=== PATIENT | male | born 1960 | race Two or more races ===

== ENCOUNTER 2022-10-12 17:52 | Inpatient (IN) | payer MEDICAID ==
[~2022-10-12] VITALS: Ht 165.1 cm; Wt 65.5 kg
[~2022-10-12 17:52] MED LIST: ACET-2247 PO; ALBU2.5V39 NEB; AMLO-258 PO; ASPI-1450 PO; BISA10SU11 PR; BUDE0.5A NEB; CLON0.1T2 PO; DOCU-385 PO; EPOE10003 SQ; FAMO20 PO; FURO40 PO; HEPA500018 SQ; PERCT PO
[2022-10-12] MEDS ORDERED: LORazepam 1 MG TABLET PO ONE (19:00)
[2022-10-12 19:07] LABS: PH,URINE DRUG SCREEN 5.5 (5.0-8.0)
[2022-10-12 19:07] LABS: COVID AG,FIA SOURCE NASOPHARYNGEAL
[2022-10-12 19:14] LABS: ALCOHOL, URINE DRUG SCREEN NEGATIVE (NEGATIVE); AMPHET/METH SCREEN,URINE NEGATIVE (NEGATIVE); BARBITURATE SCREEN, URINE NEGATIVE (NEGATIVE); BENZODIAZEPINES SCREEN,URINE NEGATIVE (NEGATIVE); CANNABINOID SCREEN,URINE NEGATIVE (NEGATIVE); COCAINE SCREEN,URINE NEGATIVE (NEGATIVE); METHADONE SCREEN, URINE NEGATIVE (NEGATIVE); OPIATE SCREEN,URINE NEGATIVE (NEGATIVE); PHENCYCLIDINE SCREEN,URINE NEGATIVE (NEGATIVE)
[2022-10-12 19:24] LABS: SARS-COV2 (COVID) ANTIGEN,FIA Negative (Negative)
[2022-10-12] MEDS ORDERED: ACETAMINOPHEN 325 MG TABLET PO PRN (19:45)
[2022-10-12 20:48] LABS: EOSINOPHILS % (AUTO) 2.6 % (1.0-6.0); HEMATOCRIT 29.2 % (41-53); HEMOGLOBIN 9.9 g/dL (13.5-17.5); LYMPHOCYTES # (AUTO) 0.8 K/uL (1.0-4.8); LYMPHOCYTES % (AUTO) 10.1 % (22.0-44.0); MEAN CORPUSCULAR HGB CONC 33.8 G/dL (31.0-37.0); MEAN CORPUSCULAR VOLUME 74 fL (80-100); MONOCYTES # (AUTO) 0.5 K/uL (0.1-1.0); MONOCYTES % (AUTO) 6.4 % (2.0-9.0); NEUTROPHILS # (AUTO) 6.4 K/uL (1.8-7.7); NEUTROPHILS % (AUTO) 79.9 % (40.0-70.0); PLATELET COUNT (AUTO) 202 K/uL (150-450); RED BLOOD CELL COUNT(AUTO) 3.96 MIL/uL (4.50-5.90); RED CELL DISTRIBUTION WIDTH 18.1 % (11.5-14.5)
[2022-10-12 20:56] LABS: ANION GAP 12 mmol/L (8-16); CALCIUM, TOTAL 8.2 mg/dL (8.8-10.5); CARBON DIOXIDE 26 mmol/L (22-29); CHLORIDE 101 mmol/L (98-107); CREATININE 3.98 mg/dL (0.60-1.30); GLOMERULAR FILTR. RATE CALC 15 mL/min (>60); GLUCOSE,RANDOM 107 mg/dL (70-110); POTASSIUM 3.4 mmol/L (3.5-5.1); SODIUM SERUM 139 mmol/L (136-145); UREA NITROGEN, BLOOD 71 mg/dL (7-18)
[2022-10-12 20:59] LABS: ALCOHOL, BLOOD (SERUM) < 3 mg/dL (0-10)
[2022-10-12 21:01] LABS: ALANINE AMINOTRANSFERASE 21 U/L (12-78); ALKALINE PHOSPHATASE 115 U/L (46-116); ASPARTATE AMINOTRANSFERASE 12 U/L (15-37); BILIRUBIN,TOTAL 0.4 mg/dL (0.1-1.0); TOTAL PROTEIN, SERUM 6.3 g/dL (6.4-8.2)
[2022-10-13] MEDS ORDERED: SODIUM CHLORIDE 0.9% 250 ML IV ONE ×2 (06:23→06:30)
[2022-10-13] MEDS ORDERED: AmLODIPine BESYLATE 10 MG TABLET PO ONE (06:30)
[2022-10-13] MEDS ORDERED: ZOLPIDEM TARTRATE 10 MG TABLET PO PRN (08:15)
[2022-10-13 08:27] LABS: APPEARANCE,URINE CLEAR (CLEAR); BILIRUBIN,URINE NEGATIVE (NEGATIVE); COLOR,URINE LIGHT YELLOW (YELLOW); GLUCOSE, URINE (UA) NEGATIVE (NEGATIVE); KETONES,URINE NEGATIVE (NEGATIVE); LEUKOCYTE ESTERASE ,URINE NEGATIVE (NEGATIVE); NITRATE,URINE NEGATIVE (NEGATIVE); OCCULT BLOOD,URINE TRACE (NEGATIVE); PH,URINE 5.5 (5.0-8.0); PROTEIN,URINE 300-600,SEE CONFIRM mg/dL (NEGATIVE); SPECIFIC GRAVITIY, URINE 1.011 (1.003-1.030); UROBILINOGEN,URINE <=1.0 mg/dL (<=1.0)
[2022-10-13 08:44] LABS: BACTERIA,URINE None Seen /HPF (None Seen); RBC,URINE 0-2 /HPF (0-2); SULFOSALICYLIC ACID,URINE 3+ (Negative); WBC,URINE None Seen /HPF (0-5)
[2022-10-13] MEDS: HydrALAZINE HCL 25 MG TABLET PO SCH ×3 (11:06→20:30)
[2022-10-13] MEDS: CloNIDine HCL 0.1 MG TABLET PO PRN (12:05)
[2022-10-13] MEDS: LORazepam 2 MG TABLET PO PRN (21:56)
[2022-10-13] MEDS: HALOPERIDOL 5 MG TABLET PO PRN (21:56)
[2022-10-14] MEDS: CloNIDine HCL 0.1 MG TABLET PO PRN ×2 (04:17→13:34)
[2022-10-14] MEDS: HALOPERIDOL 5 MG TABLET PO PRN (04:17)
[2022-10-14] MEDS: LORazepam 2 MG TABLET PO PRN (04:17)
[2022-10-14 08:11] LABS: GLUCOMETER DEV NAME(LOC) ER.6; GLUCOSE,POINT OF CARE 128 MG/DL (70-110)
[2022-10-14] MEDS: HydrALAZINE HCL 25 MG TABLET PO SCH ×2 (08:35→15:29)
[2022-10-14 12:06] LABS: GLUCOMETER DEV NAME(LOC) ER.6; GLUCOSE,POINT OF CARE 152 MG/DL (70-110)
[2022-10-14] MEDS ORDERED: HydrALAZINE HCL 25 MG TABLET PO ONE (15:45)
[2022-10-14] MEDS ORDERED: LABETALOL HCL 100 MG TABLET PO SCH (17:00)
[2022-10-14] MEDS ORDERED: HydrALAZINE HCL 50 MG TABLET PO SCH (17:00)
[2022-10-14] MEDS: HydrALAZINE HCL 50 MG TABLET PO SCH (21:00)
[2022-10-14 22:09] LABS: BASOPHILS % (AUTO) 0.9 % (0.0-2.0); EOSINOPHILS % (AUTO) 3.3 % (1.0-6.0); HEMATOCRIT 31.3 % (41-53); HEMOGLOBIN 10.2 g/dL (13.5-17.5); LYMPHOCYTES % (AUTO) 13.4 % (22.0-44.0); MEAN CORPUSCULAR HEMOGLOBIN 24.1 pg (26.0-34.0); MEAN CORPUSCULAR HGB CONC 32.4 G/dL (31.0-37.0); MEAN CORPUSCULAR VOLUME 74 fL (80-100); MONOCYTES # (AUTO) 0.7 K/uL (0.1-1.0); MONOCYTES % (AUTO) 9.2 % (2.0-9.0); NEUTROPHILS # (AUTO) 5.4 K/uL (1.8-7.7); NEUTROPHILS % (AUTO) 73.2 % (40.0-70.0); PLATELET COUNT (AUTO) 216 K/uL (150-450); RED BLOOD CELL COUNT(AUTO) 4.22 MIL/uL (4.50-5.90); RED CELL DISTRIBUTION WIDTH 18.1 % (11.5-14.5); WHITE BLOOD COUNT (AUTO) 7.4 K/uL (4.5-11.0)
[2022-10-14] MEDS ORDERED: NITROGLYCERIN 2% (1 GM=INCH) OINTMENT PACKET TP PRN (22:15)
[2022-10-14] MEDS ORDERED: HydrALAZINE HCL 20 MG/ML VIAL IVP ONE (22:15)
[2022-10-14] MEDS ORDERED: ONDANSETRON HCL 4 MG/2 ML VIAL IVP PRN (22:15)
[2022-10-14 22:29] LABS: CALCIUM, TOTAL 8.5 mg/dL (8.8-10.5); CREATININE 3.59 mg/dL (0.60-1.30); POTASSIUM 3.4 mmol/L (3.5-5.1)
[2022-10-14 22:34] LABS: BILIRUBIN,TOTAL 0.4 mg/dL (0.1-1.0); TOTAL PROTEIN, SERUM 6.3 g/dL (6.4-8.2)
[2022-10-14 22:46] LABS: TROPONIN I-HIGH SENSITIVITY 94 ng/L (<76)
[2022-10-14] MEDS ORDERED: ASPIRIN 81 MG CHEWABLE TABLET PO ONE (23:00)
[2022-10-14] MEDS ORDERED: ATORVASTATIN CALCIUM 40 MG TABLET PO ONE (23:00)
[2022-10-14] MEDS ORDERED: LORazepam 2 MG/ML VIAL IVP ONE (23:15)
[2022-10-15] MEDS ORDERED: HEPARIN SODIUM,PORCINE 5,000 UNITS/ML VIAL SQ SCH
[2022-10-15] MEDS: NiCARDipine HCL 25 MG in SODIUM CHLORIDE 0.9% 240 ML IV PRN ×5 (03:43→21:44)
[2022-10-15] MEDS ORDERED: HALOPERIDOL LACTATE 5 MG/ML VIAL IM ONE (04:15)
[2022-10-15] MEDS ORDERED: LORazepam 2 MG/ML VIAL IVP ONE (04:45)
[2022-10-15 05:08] LABS: BASOPHILS % (AUTO) 0.8 % (0.0-2.0); EOSINOPHILS % (AUTO) 2.8 % (1.0-6.0); HEMATOCRIT 34.1 % (41-53); HEMOGLOBIN 11.3 g/dL (13.5-17.5); LYMPHOCYTES # (AUTO) 1.1 K/uL (1.0-4.8); LYMPHOCYTES % (AUTO) 11.8 % (22.0-44.0); MEAN CORPUSCULAR HEMOGLOBIN 24.7 pg (26.0-34.0); MEAN CORPUSCULAR HGB CONC 33.2 G/dL (31.0-37.0); MEAN CORPUSCULAR VOLUME 74 fL (80-100); MONOCYTES # (AUTO) 0.7 K/uL (0.1-1.0); MONOCYTES % (AUTO) 7.3 % (2.0-9.0); NEUTROPHILS # (AUTO) 7.3 K/uL (1.8-7.7); NEUTROPHILS % (AUTO) 77.3 % (40.0-70.0); PLATELET COUNT (AUTO) 209 K/uL (150-450); RED BLOOD CELL COUNT(AUTO) 4.59 MIL/uL (4.50-5.90); RED CELL DISTRIBUTION WIDTH 18.5 % (11.5-14.5); WHITE BLOOD COUNT (AUTO) 9.5 K/uL (4.5-11.0)
[2022-10-15 05:27] LABS: CALCIUM, TOTAL 8.7 mg/dL (8.8-10.5); CREATININE 3.45 mg/dL (0.60-1.30); MAGNESIUM 2.2 mg/dL (1.80-2.40); POTASSIUM 3.3 mmol/L (3.5-5.1)
[2022-10-15 05:30] LABS: TROPONIN I-HIGH SENSITIVITY 97 ng/L (<76)
[2022-10-15 09:31] LABS: TROPONIN I-HIGH SENSITIVITY 228 ng/L (<76)
[2022-10-15] MEDS: ASPIRIN 81 MG CHEWABLE TABLET PO SCH (09:40)
[2022-10-15] MEDS: DOCUSATE SODIUM 100 MG CAPSULE PO SCH ×2 (09:40→20:30)
[2022-10-15] MEDS: METOPROLOL TARTRATE 25 MG TABLET PO SCH ×2 (09:40→20:30)
[2022-10-15] MEDS: CloNIDine HCL 0.1 MG TABLET PO SCH ×3 (09:40→23:35)
[2022-10-15] MEDS: HydrALAZINE HCL 50 MG TABLET PO SCH ×3 (09:41→20:30)
[2022-10-15] MEDS: ATORVASTATIN CALCIUM 40 MG TABLET PO SCH (09:41)
[2022-10-15 12:00] VITALS: BP 123/87; PULSE 87; RESP 12; TEMP 98.2
[2022-10-15] MEDS: LORazepam 2 MG/ML VIAL IVP PRN ×4 (13:56→23:35)
[2022-10-15 16:00] VITALS: BP 165/114; PULSE 112; RESP 14; TEMP 98.5
[2022-10-15] MEDS: HALOPERIDOL LACTATE 5 MG/ML VIAL IM PRN (17:07)
[2022-10-15 20:00] VITALS: BP 168/87; PULSE 117; RESP 15; TEMP 99
[2022-10-15] MEDS: LABETALOL HCL 5 MG/ML 20 ML VIAL IVP PRN (22:03)
[2022-10-15] MEDS: ACETAMINOPHEN 325 MG TABLET PO PRN (22:04)
[2022-10-15] MEDS: HEPARIN SODIUM,PORCINE 5,000 UNITS/ML VIAL SQ SCH (23:34)
[2022-10-16] VITALS (7 sets, daily range): BP systolic 114–188; BP diastolic 68–118; PULSE 70–97; RESP 12–20; TEMP 98–99.7
[2022-10-16] MEDS: NiCARDipine HCL 25 MG in SODIUM CHLORIDE 0.9% 240 ML IV PRN ×3 (02:32→10:21)
[2022-10-16] MEDS: LORazepam 2 MG/ML VIAL IVP PRN (02:33)
[2022-10-16] MEDS: HALOPERIDOL LACTATE 5 MG/ML VIAL IM PRN (03:53)
[2022-10-16 05:29] LABS: BASOPHILS % (AUTO) 1.1 % (0.0-2.0); EOSINOPHILS % (AUTO) 1.9 % (1.0-6.0); HEMATOCRIT 30.2 % (41-53); HEMOGLOBIN 10.2 g/dL (13.5-17.5); LYMPHOCYTES # (AUTO) 0.6 K/uL (1.0-4.8); LYMPHOCYTES % (AUTO) 7.2 % (22.0-44.0); MEAN CORPUSCULAR HEMOGLOBIN 25.1 pg (26.0-34.0); MEAN CORPUSCULAR HGB CONC 33.8 G/dL (31.0-37.0); MEAN CORPUSCULAR VOLUME 74 fL (80-100); MONOCYTES # (AUTO) 0.6 K/uL (0.1-1.0); MONOCYTES % (AUTO) 7.1 % (2.0-9.0); NEUTROPHILS # (AUTO) 7.4 K/uL (1.8-7.7); NEUTROPHILS % (AUTO) 82.7 % (40.0-70.0); PLATELET COUNT (AUTO) 212 K/uL (150-450); RED BLOOD CELL COUNT(AUTO) 4.06 MIL/uL (4.50-5.90); RED CELL DISTRIBUTION WIDTH 18.6 % (11.5-14.5)
[2022-10-16 05:40] LABS: CALCIUM, TOTAL 8.6 mg/dL (8.8-10.5); CREATININE 3.39 mg/dL (0.60-1.30); POTASSIUM 3.1 mmol/L (3.5-5.1)
[2022-10-16 05:55] LABS: TROPONIN I-HIGH SENSITIVITY 145 ng/L (<76)
[2022-10-16] MEDS ORDERED: DEXTROSE 5% IV ONE (09:45)
[2022-10-16] MEDS ORDERED: AmLODIPine BESYLATE 5 MG TABLET PO SCH (09:45)
[2022-10-16] MEDS ORDERED: WATER IV ONE (09:45)
[2022-10-16] MEDS ORDERED: POTASSIUM CHLORIDE IV ONE (09:45)
[2022-10-16] MEDS: ATORVASTATIN CALCIUM 40 MG TABLET PO SCH (10:17)
[2022-10-16] MEDS: METOPROLOL TARTRATE 25 MG TABLET PO SCH ×2 (10:17→20:43)
[2022-10-16] MEDS: ASPIRIN 81 MG CHEWABLE TABLET PO SCH (10:18)
[2022-10-16] MEDS: CloNIDine HCL 0.1 MG TABLET PO SCH ×3 (10:18→23:34)
[2022-10-16] MEDS: DOCUSATE SODIUM 100 MG CAPSULE PO SCH ×2 (10:19→20:43)
[2022-10-16] MEDS: HEPARIN SODIUM,PORCINE 5,000 UNITS/ML VIAL SQ SCH ×3 (10:19→23:34)
[2022-10-16] MEDS: LABETALOL HCL 5 MG/ML 20 ML VIAL IVP PRN (11:50)
[2022-10-16] MEDS: HydrALAZINE HCL 50 MG TABLET PO SCH ×2 (15:18→20:43)
[2022-10-17 01:05] VITALS: BP 182/102; PULSE 64; RESP 18; TEMP 97.6
[2022-10-17 05:15] VITALS: BP 185/119; PULSE 73; RESP 18; TEMP 97.8
[2022-10-17] MEDS: LABETALOL HCL 5 MG/ML 20 ML VIAL IVP PRN (05:21)
[2022-10-17 07:14] LABS: CALCIUM, TOTAL 8.2 mg/dL (8.8-10.5); CREATININE 3.39 mg/dL (0.60-1.30); POTASSIUM 3.6 mmol/L (3.5-5.1)
[2022-10-17] MEDS: AmLODIPine BESYLATE 5 MG TABLET PO SCH ×2 (07:16→09:00)
[2022-10-17] MEDS: DOCUSATE SODIUM 100 MG CAPSULE PO SCH ×2 (09:00→20:57)
[2022-10-17] MEDS: ASPIRIN 81 MG CHEWABLE TABLET PO SCH (09:36)
[2022-10-17] MEDS: METOPROLOL TARTRATE 25 MG TABLET PO SCH ×2 (09:36→20:56)
[2022-10-17] MEDS: HEPARIN SODIUM,PORCINE 5,000 UNITS/ML VIAL SQ SCH ×2 (09:36→16:24)
[2022-10-17] MEDS: ATORVASTATIN CALCIUM 40 MG TABLET PO SCH (09:36)
[2022-10-17] MEDS: HydrALAZINE HCL 50 MG TABLET PO SCH ×3 (11:33→20:57)
[2022-10-17] MEDS ORDERED: DEXTROSE 5%-WATER 1,000 ML IV SCH (13:45)
[2022-10-17] MEDS: LORazepam 2 MG/ML VIAL IVP PRN (14:25)
[2022-10-17] MEDS: CloNIDine HCL 0.1 MG TABLET PO SCH (16:24)
[2022-10-17 19:39] VITALS: BP 156/102; PULSE 73; RESP 20; TEMP 98.6
[2022-10-17 23:55] VITALS: BP 186/108; PULSE 71; RESP 18; TEMP 98.1
[2022-10-18] MEDS: HEPARIN SODIUM,PORCINE 5,000 UNITS/ML VIAL SQ SCH ×4 (01:03→16:17)
[2022-10-18] MEDS: CloNIDine HCL 0.1 MG TABLET PO SCH ×3 (01:04→16:17)
[2022-10-18] MEDS: LABETALOL HCL 5 MG/ML 20 ML VIAL IVP PRN (05:09)
[2022-10-18 05:32] VITALS: BP 170/98; PULSE 73; RESP 18; TEMP 98.1
[2022-10-18 07:20] LABS: BASOPHILS % (AUTO) 0.7 % (0.0-2.0); EOSINOPHILS % (AUTO) 2.3 % (1.0-6.0); HEMATOCRIT 30.5 % (41-53); HEMOGLOBIN 9.9 g/dL (13.5-17.5); LYMPHOCYTES # (AUTO) 0.7 K/uL (1.0-4.8); LYMPHOCYTES % (AUTO) 7.5 % (22.0-44.0); MEAN CORPUSCULAR HEMOGLOBIN 24.2 pg (26.0-34.0); MEAN CORPUSCULAR HGB CONC 32.5 G/dL (31.0-37.0); MEAN CORPUSCULAR VOLUME 75 fL (80-100); MONOCYTES # (AUTO) 0.8 K/uL (0.1-1.0); MONOCYTES % (AUTO) 8.3 % (2.0-9.0); NEUTROPHILS % (AUTO) 81.2 % (40.0-70.0); PLATELET COUNT (AUTO) 222 K/uL (150-450); RED BLOOD CELL COUNT(AUTO) 4.09 MIL/uL (4.50-5.90); RED CELL DISTRIBUTION WIDTH 18.3 % (11.5-14.5); WHITE BLOOD COUNT (AUTO) 9.9 K/uL (4.5-11.0)
[2022-10-18 07:25] VITALS: BP 150/93; PULSE 68; RESP 18; TEMP 98.3
[2022-10-18 07:41] LABS: CALCIUM, TOTAL 8.1 mg/dL (8.8-10.5); CREATININE 3.47 mg/dL (0.60-1.30); POTASSIUM 3.4 mmol/L (3.5-5.1)
[2022-10-18] MEDS: ASPIRIN 81 MG CHEWABLE TABLET PO SCH (09:34)
[2022-10-18] MEDS: DOCUSATE SODIUM 100 MG CAPSULE PO SCH ×2 (09:38→21:26)
[2022-10-18] MEDS: HydrALAZINE HCL 50 MG TABLET PO SCH ×3 (09:38→21:26)
[2022-10-18] MEDS: ATORVASTATIN CALCIUM 40 MG TABLET PO SCH (09:38)
[2022-10-18] MEDS: METOPROLOL TARTRATE 25 MG TABLET PO SCH ×2 (09:39→21:26)
[2022-10-18] MEDS: AmLODIPine BESYLATE 5 MG TABLET PO SCH (09:39)
[2022-10-18 11:17] VITALS: BP 158/100; PULSE 71; RESP 19; TEMP 98.3
[2022-10-18] MEDS ORDERED: POTASSIUM CHLORIDE 20 MEQ ER TABLET PO ONE (13:00)
[2022-10-18 15:15] VITALS: BP 152/112; PULSE 85; RESP 19; TEMP 98.8
[2022-10-18] MEDS: ACETAMINOPHEN 325 MG TABLET PO PRN ×2 (16:09→16:17)
[2022-10-18 19:44] VITALS: BP 149/98; PULSE 74; RESP 20; TEMP 98.4
[2022-10-19] VITALS (7 sets, daily range): BP systolic 135–177; BP diastolic 77–103; PULSE 65–76; RESP 17–20; TEMP 97.7–98.9
[2022-10-19] MEDS: HEPARIN SODIUM,PORCINE 5,000 UNITS/ML VIAL SQ SCH ×4 (00:07→23:47)
[2022-10-19] MEDS: CloNIDine HCL 0.1 MG TABLET PO SCH ×4 (00:07→23:47)
[2022-10-19 07:32] LABS: BASOPHILS % (AUTO) 1.2 % (0.0-2.0); EOSINOPHILS % (AUTO) 1.5 % (1.0-6.0); HEMATOCRIT 26.8 % (41-53); HEMOGLOBIN 9.2 g/dL (13.5-17.5); LYMPHOCYTES # (AUTO) 0.5 K/uL (1.0-4.8); LYMPHOCYTES % (AUTO) 10.7 % (22.0-44.0); MEAN CORPUSCULAR HEMOGLOBIN 25.1 pg (26.0-34.0); MEAN CORPUSCULAR HGB CONC 34.2 G/dL (31.0-37.0); MEAN CORPUSCULAR VOLUME 74 fL (80-100); MONOCYTES # (AUTO) 0.6 K/uL (0.1-1.0); MONOCYTES % (AUTO) 13.7 % (2.0-9.0); NEUTROPHILS # (AUTO) 3.3 K/uL (1.8-7.7); NEUTROPHILS % (AUTO) 72.9 % (40.0-70.0); PLATELET COUNT (AUTO) 174 K/uL (150-450); RED BLOOD CELL COUNT(AUTO) 3.65 MIL/uL (4.50-5.90); RED CELL DISTRIBUTION WIDTH 18.3 % (11.5-14.5); WHITE BLOOD COUNT (AUTO) 4.5 K/uL (4.5-11.0)
[2022-10-19] MEDS: LORazepam 2 MG/ML VIAL IVP PRN ×3 (07:33→21:02)
[2022-10-19 08:17] LABS: CALCIUM, TOTAL 7.8 mg/dL (8.8-10.5); CREATININE 3.84 mg/dL (0.60-1.30)
[2022-10-19 08:28] LABS: RBC MORPHOLOGY COMMENT ABNORMAL RBC MORPH
[2022-10-19] MEDS: ASPIRIN 81 MG CHEWABLE TABLET PO SCH (10:20)
[2022-10-19] MEDS: HydrALAZINE HCL 50 MG TABLET PO SCH ×3 (10:21→20:53)
[2022-10-19] MEDS: ATORVASTATIN CALCIUM 40 MG TABLET PO SCH (10:22)
[2022-10-19] MEDS: METOPROLOL TARTRATE 25 MG TABLET PO SCH ×2 (10:22→20:53)
[2022-10-19] MEDS: DOCUSATE SODIUM 100 MG CAPSULE PO SCH ×2 (10:22→20:54)
[2022-10-19] MEDS: AmLODIPine BESYLATE 5 MG TABLET PO SCH (10:23)
[2022-10-19] MEDS: LOSARTAN POTASSIUM 50 MG TABLET PO SCH (13:55)
[2022-10-20] MEDS: LORazepam 2 MG/ML VIAL IVP PRN ×3 (00:18→20:20)
[2022-10-20 04:48] VITALS: BP 156/88; PULSE 76; RESP 18; TEMP 98.1
[2022-10-20 07:17] VITALS: BP 140/100; PULSE 84; RESP 18; TEMP 98
[2022-10-20 07:52] LABS: BASOPHILS % (AUTO) 0.6 % (0.0-2.0); EOSINOPHILS % (AUTO) 1.6 % (1.0-6.0); HEMATOCRIT 30.9 % (41-53); HEMOGLOBIN 10.2 g/dL (13.5-17.5); LYMPHOCYTES # (AUTO) 0.3 K/uL (1.0-4.8); LYMPHOCYTES % (AUTO) 4.2 % (22.0-44.0); MEAN CORPUSCULAR HEMOGLOBIN 24.5 pg (26.0-34.0); MEAN CORPUSCULAR VOLUME 74 fL (80-100); MONOCYTES # (AUTO) 0.8 K/uL (0.1-1.0); MONOCYTES % (AUTO) 9.7 % (2.0-9.0); NEUTROPHILS # (AUTO) 6.9 K/uL (1.8-7.7); NEUTROPHILS % (AUTO) 83.9 % (40.0-70.0); PLATELET COUNT (AUTO) 187 K/uL (150-450); RED BLOOD CELL COUNT(AUTO) 4.16 MIL/uL (4.50-5.90); RED CELL DISTRIBUTION WIDTH 18.6 % (11.5-14.5); WHITE BLOOD COUNT (AUTO) 8.2 K/uL (4.5-11.0)
[2022-10-20 08:34] LABS: CALCIUM, TOTAL 7.8 mg/dL (8.8-10.5); CREATININE 3.83 mg/dL (0.60-1.30); PHOSPHORUS 4.6 mg/dL (2.5-4.9); POTASSIUM 3.8 mmol/L (3.5-5.1)
[2022-10-20 08:55] LABS: RBC MORPHOLOGY COMMENT ABNORMAL RBC MORPH
[2022-10-20] MEDS: HydrALAZINE HCL 50 MG TABLET PO SCH ×3 (09:06→20:20)
[2022-10-20] MEDS: LOSARTAN POTASSIUM 50 MG TABLET PO SCH (09:06)
[2022-10-20] MEDS: ASPIRIN 81 MG CHEWABLE TABLET PO SCH (09:06)
[2022-10-20] MEDS: AmLODIPine BESYLATE 5 MG TABLET PO SCH (09:07)
[2022-10-20] MEDS: DOCUSATE SODIUM 100 MG CAPSULE PO SCH ×2 (09:07→20:20)
[2022-10-20] MEDS: ATORVASTATIN CALCIUM 40 MG TABLET PO SCH (09:07)
[2022-10-20] MEDS: HEPARIN SODIUM,PORCINE 5,000 UNITS/ML VIAL SQ SCH ×2 (09:07→16:58)
[2022-10-20] MEDS: METOPROLOL TARTRATE 25 MG TABLET PO SCH ×2 (09:08→20:20)
[2022-10-20] MEDS: CloNIDine HCL 0.1 MG TABLET PO SCH ×2 (11:05→16:48)
[2022-10-20 11:32] VITALS: BP 183/105; PULSE 84; RESP 18; TEMP 98.9
[2022-10-20] MEDS ORDERED: BREXPIPRAZOLE 1 MG TABLET PO ONE (12:30)
[2022-10-20] MEDS ORDERED: BREXPIPRAZOLE 1 MG TABLET PO PRN (12:30)
[2022-10-20] MEDS: BREXPIPRAZOLE 1 MG TABLET PO SCH ×3 (13:00→20:19)
[2022-10-20 15:56] VITALS: BP 150/92; PULSE 78; RESP 18; TEMP 98
[2022-10-20 20:12] VITALS: BP 142/84; PULSE 61; RESP 19; TEMP 98.3
[2022-10-21 00:01] VITALS: BP 161/90; PULSE 62; RESP 19; TEMP 98.2
[2022-10-21] MEDS: LORazepam 2 MG/ML VIAL IVP PRN (00:28)
[2022-10-21] MEDS: HEPARIN SODIUM,PORCINE 5,000 UNITS/ML VIAL SQ SCH ×4 (00:29→23:53)
[2022-10-21 06:20] VITALS: BP 174/94; PULSE 59; RESP 19; TEMP 97.5
[2022-10-21] MEDS: LABETALOL HCL 5 MG/ML 20 ML VIAL IVP PRN (06:29)
[2022-10-21] MEDS: METOPROLOL TARTRATE 25 MG TABLET PO SCH (08:35)
[2022-10-21] MEDS: LOSARTAN POTASSIUM 50 MG TABLET PO SCH ×2 (08:37→20:02)
[2022-10-21] MEDS: ASPIRIN 81 MG CHEWABLE TABLET PO SCH (08:37)
[2022-10-21] MEDS: AmLODIPine BESYLATE 5 MG TABLET PO SCH (08:37)
[2022-10-21] MEDS: HydrALAZINE HCL 50 MG TABLET PO SCH ×3 (08:38→20:02)
[2022-10-21] MEDS: DOCUSATE SODIUM 100 MG CAPSULE PO SCH ×2 (08:39→20:02)
[2022-10-21] MEDS: ATORVASTATIN CALCIUM 40 MG TABLET PO SCH (08:39)
[2022-10-21] MEDS: CloNIDine HCL 0.1 MG TABLET PO SCH ×4 (08:39→23:53)
[2022-10-21] MEDS: BREXPIPRAZOLE 1 MG TABLET PO SCH ×4 (08:41→20:02)
[2022-10-21 11:30] VITALS: BP 144/87; PULSE 64; RESP 19; TEMP 98.1
[2022-10-21 13:10] LABS: CREATININE 3.74 mg/dL (0.60-1.30); POTASSIUM 3.9 mmol/L (3.5-5.1)
[2022-10-21 16:26] VITALS: BP 143/85; PULSE 54; RESP 16; TEMP 98
[2022-10-21 19:50] VITALS: BP 148/96; PULSE 70; RESP 18; TEMP 97.7
[2022-10-21] MEDS: METOPROLOL TARTRATE 50 MG TABLET PO SCH (20:02)
[2022-10-21 23:10] VITALS: BP 136/87; PULSE 67; RESP 18; TEMP 99.2
[2022-10-22 03:35] VITALS: BP 144/92; PULSE 67; RESP 20; TEMP 98.4
[2022-10-22 07:02] LABS: CALCIUM, TOTAL 7.8 mg/dL (8.8-10.5); CREATININE 3.86 mg/dL (0.60-1.30); POTASSIUM 3.9 mmol/L (3.5-5.1)
[2022-10-22 08:29] VITALS: BP 161/98; PULSE 70; RESP 19; TEMP 98.8
[2022-10-22] MEDS: ASPIRIN 81 MG CHEWABLE TABLET PO SCH (08:45)
[2022-10-22] MEDS: CloNIDine HCL 0.1 MG TABLET PO SCH ×3 (08:45→23:38)
[2022-10-22] MEDS: HEPARIN SODIUM,PORCINE 5,000 UNITS/ML VIAL SQ SCH ×3 (08:47→23:38)
[2022-10-22] MEDS: ATORVASTATIN CALCIUM 40 MG TABLET PO SCH (09:31)
[2022-10-22] MEDS: LOSARTAN POTASSIUM 50 MG TABLET PO SCH ×2 (09:32→20:33)
[2022-10-22] MEDS: METOPROLOL TARTRATE 50 MG TABLET PO SCH ×2 (09:32→20:33)
[2022-10-22] MEDS: DOCUSATE SODIUM 100 MG CAPSULE PO SCH ×2 (09:32→20:33)
[2022-10-22] MEDS: BREXPIPRAZOLE 1 MG TABLET PO SCH ×5 (09:38→20:33)
[2022-10-22] MEDS: AmLODIPine BESYLATE 5 MG TABLET PO SCH (09:39)
[2022-10-22] MEDS: HydrALAZINE HCL 50 MG TABLET PO SCH ×3 (10:33→20:32)
[2022-10-22] MEDS ORDERED: BREXPIPRAZOLE 1 MG TABLET PO SCH ×2 (12:00)
[2022-10-22 20:01] VITALS: BP 147/83; PULSE 67; RESP 18; TEMP 98.1
[2022-10-22 23:40] VITALS: BP 136/85; PULSE 68; RESP 18; TEMP 97.9
[2022-10-23 06:09] VITALS: BP 141/85; PULSE 63; RESP 18; TEMP 98.2
[2022-10-23 07:35] VITALS: BP 156/91; PULSE 62; RESP 19; TEMP 97.7
[2022-10-23] MEDS: ATORVASTATIN CALCIUM 40 MG TABLET PO SCH (08:32)
[2022-10-23] MEDS: DOCUSATE SODIUM 100 MG CAPSULE PO SCH ×2 (08:33→20:26)
[2022-10-23] MEDS: HydrALAZINE HCL 50 MG TABLET PO SCH ×3 (08:33→20:24)
[2022-10-23] MEDS: CloNIDine HCL 0.1 MG TABLET PO SCH ×2 (08:33→16:10)
[2022-10-23] MEDS: AmLODIPine BESYLATE 5 MG TABLET PO SCH (08:33)
[2022-10-23] MEDS: LOSARTAN POTASSIUM 50 MG TABLET PO SCH ×2 (08:34→20:22)
[2022-10-23] MEDS: METOPROLOL TARTRATE 50 MG TABLET PO SCH ×2 (08:34→20:22)
[2022-10-23] MEDS: ASPIRIN 81 MG CHEWABLE TABLET PO SCH (08:34)
[2022-10-23] MEDS: HEPARIN SODIUM,PORCINE 5,000 UNITS/ML VIAL SQ SCH ×2 (08:38→16:10)
[2022-10-23] MEDS: BREXPIPRAZOLE 1 MG TABLET PO SCH ×4 (09:50→20:25)
[2022-10-23 15:00] VITALS: BP 145/86; PULSE 70; RESP 17; TEMP 98.3
[2022-10-23 19:30] VITALS: BP 143/84; PULSE 70; RESP 18; TEMP 97.6
[2022-10-24] MEDS: HEPARIN SODIUM,PORCINE 5,000 UNITS/ML VIAL SQ SCH ×4 (01:01→23:24)
[2022-10-24] MEDS: CloNIDine HCL 0.1 MG TABLET PO SCH ×4 (01:04→23:24)
[2022-10-24 01:10] VITALS: BP 156/95; RESP 18
[2022-10-24 04:45] VITALS: BP 141/86; PULSE 61; RESP 18; TEMP 97.6
[2022-10-24 07:00] VITALS: BP 150/88; PULSE 66; RESP 18; TEMP 98.4
[2022-10-24] MEDS: LOSARTAN POTASSIUM 50 MG TABLET PO SCH ×2 (07:55→20:19)
[2022-10-24] MEDS: BREXPIPRAZOLE 1 MG TABLET PO SCH ×4 (07:55→20:19)
[2022-10-24] MEDS: AmLODIPine BESYLATE 5 MG TABLET PO SCH (07:55)
[2022-10-24] MEDS: METOPROLOL TARTRATE 50 MG TABLET PO SCH ×2 (07:55→20:19)
[2022-10-24] MEDS: ASPIRIN 81 MG CHEWABLE TABLET PO SCH (07:55)
[2022-10-24] MEDS: HydrALAZINE HCL 50 MG TABLET PO SCH ×3 (07:55→20:19)
[2022-10-24] MEDS: ATORVASTATIN CALCIUM 40 MG TABLET PO SCH (07:55)
[2022-10-24] MEDS: DOCUSATE SODIUM 100 MG CAPSULE PO SCH ×2 (08:24→20:19)
[2022-10-24] MEDS ORDERED: HEPARIN SODIUM,PORCINE 5,000 UNITS/ML VIAL SQ ONE (08:30)
[2022-10-24 10:20] LABS: CALCIUM, TOTAL 7.7 mg/dL (8.8-10.5); CREATININE 3.67 mg/dL (0.60-1.30); MAGNESIUM 2.3 mg/dL (1.80-2.40); PHOSPHORUS 5.4 mg/dL (2.5-4.9)
[2022-10-24 15:00] VITALS: BP 150/78; PULSE 65; RESP 19; TEMP 98.5
[2022-10-24] MEDS: SEVELAMER CARBONATE 800 MG TABLET PO SCH (18:01)
[2022-10-24 20:20] VITALS: BP 147/88; PULSE 70; RESP 18; TEMP 98.8
[2022-10-24 23:30] VITALS: BP 151/80; PULSE 65
[2022-10-24] MEDS: ACETAMINOPHEN 325 MG TABLET PO PRN (23:48)
[2022-10-25 04:10] VITALS: BP 152/91; PULSE 73; RESP 18; TEMP 97.7
[2022-10-25 06:27] LABS: BASOPHILS % (AUTO) 1.3 % (0.0-2.0); EOSINOPHILS % (AUTO) 3.7 % (1.0-6.0); HEMATOCRIT 26.6 % (41-53); LYMPHOCYTES # (AUTO) 0.8 K/uL (1.0-4.8); LYMPHOCYTES % (AUTO) 14.5 % (22.0-44.0); MEAN CORPUSCULAR HEMOGLOBIN 25.4 pg (26.0-34.0); MEAN CORPUSCULAR HGB CONC 33.7 G/dL (31.0-37.0); MEAN CORPUSCULAR VOLUME 75 fL (80-100); MONOCYTES # (AUTO) 0.7 K/uL (0.1-1.0); NEUTROPHILS # (AUTO) 3.6 K/uL (1.8-7.7); NEUTROPHILS % (AUTO) 67.5 % (40.0-70.0); PLATELET COUNT (AUTO) 236 K/uL (150-450); RED BLOOD CELL COUNT(AUTO) 3.54 MIL/uL (4.50-5.90); RED CELL DISTRIBUTION WIDTH 18.6 % (11.5-14.5); WHITE BLOOD COUNT (AUTO) 5.4 K/uL (4.5-11.0)
[2022-10-25] MEDS: AmLODIPine BESYLATE 5 MG TABLET PO SCH (08:04)
[2022-10-25] MEDS: METOPROLOL TARTRATE 50 MG TABLET PO SCH ×2 (08:05→19:55)
[2022-10-25] MEDS: ATORVASTATIN CALCIUM 40 MG TABLET PO SCH (08:05)
[2022-10-25] MEDS: HEPARIN SODIUM,PORCINE 5,000 UNITS/ML VIAL SQ SCH ×3 (08:05→23:22)
[2022-10-25] MEDS: LOSARTAN POTASSIUM 50 MG TABLET PO SCH ×2 (08:05→19:55)
[2022-10-25] MEDS: CloNIDine HCL 0.1 MG TABLET PO SCH ×3 (08:05→23:22)
[2022-10-25] MEDS: HydrALAZINE HCL 50 MG TABLET PO SCH ×3 (08:05→19:56)
[2022-10-25] MEDS: SEVELAMER CARBONATE 800 MG TABLET PO SCH ×3 (08:05→17:56)
[2022-10-25] MEDS: ASPIRIN 81 MG CHEWABLE TABLET PO SCH (08:05)
[2022-10-25] MEDS: DOCUSATE SODIUM 100 MG CAPSULE PO SCH ×2 (08:05→19:56)
[2022-10-25] MEDS: BREXPIPRAZOLE 1 MG TABLET PO SCH ×4 (08:08→19:55)
[2022-10-25 08:10] LABS: RBC MORPHOLOGY COMMENT ABNORMAL RBC MORPH
[2022-10-25 16:00] VITALS: BP 162/91; PULSE 71; RESP 17; TEMP 97.8
[2022-10-25 18:35] LABS: TROPONIN I-HIGH SENSITIVITY 37 ng/L (<76)
[2022-10-25] MEDS: HALOPERIDOL LACTATE 5 MG/ML VIAL IM PRN (19:00)
[2022-10-25 20:07] VITALS: BP 152/89; PULSE 67; RESP 18; TEMP 97.9
[2022-10-25 23:26] VITALS: BP 144/86; PULSE 62; RESP 18; TEMP 98.6
[2022-10-26 04:51] VITALS: BP 146/83; PULSE 64; RESP 18; TEMP 97.9
[2022-10-26] MEDS: BREXPIPRAZOLE 1 MG TABLET PO SCH ×2 (07:58→12:25)
[2022-10-26] MEDS: HydrALAZINE HCL 50 MG TABLET PO SCH ×2 (07:59→12:24)
[2022-10-26] MEDS: LOSARTAN POTASSIUM 50 MG TABLET PO SCH (08:00)
[2022-10-26] MEDS: ATORVASTATIN CALCIUM 40 MG TABLET PO SCH (08:00)
[2022-10-26] MEDS: CloNIDine HCL 0.1 MG TABLET PO SCH (08:00)
[2022-10-26] MEDS: HEPARIN SODIUM,PORCINE 5,000 UNITS/ML VIAL SQ SCH (08:00)
[2022-10-26] MEDS: SEVELAMER CARBONATE 800 MG TABLET PO SCH ×2 (08:00→12:25)
[2022-10-26] MEDS: ASPIRIN 81 MG CHEWABLE TABLET PO SCH (08:01)
[2022-10-26] MEDS: AmLODIPine BESYLATE 5 MG TABLET PO SCH (08:02)
[2022-10-26] MEDS: DOCUSATE SODIUM 100 MG CAPSULE PO SCH (08:02)
[2022-10-26] MEDS: METOPROLOL TARTRATE 50 MG TABLET PO SCH (08:03)
[2022-10-26 08:17] VITALS: BP 153/97; PULSE 74; RESP 20; TEMP 97
[2022-10-26 09:44] LABS: CALCIUM, TOTAL 7.9 mg/dL (8.8-10.5); CREATININE 4.04 mg/dL (0.60-1.30); MAGNESIUM 2.4 mg/dL (1.80-2.40); PHOSPHORUS 4.9 mg/dL (2.5-4.9); POTASSIUM 4.2 mmol/L (3.5-5.1)
== END 2022-10-26 13:05 | DRG 52 ==
LOC: EMS 17:53 → 3EC 10-14 14:05 → UNDOADMIN 10-14 14:05 → ICU 10-15 08:05 → 5S 10-16 21:45 → 6S 10-21 23:21
PROVIDERS: ADMIT Internal Medicine; ATTEND Internal Medicine
DX: I67.4 Hypertensive encephalopathy (principal); I21.A1 Myocardial infarction type 2; B69.0 Cysticercosis of central nervous system; D63.1 Anemia in chronic kidney disease; E83.39 Other disorders of phosphorus metabolism; I27.20 Pulmonary hypertension, unspecified; I13.0 Hypertensive heart and chronic kidney disease with heart failure and stage 1 through stage 4 chronic kidney disease, or unspecified chronic kidney disease; I50.32 Chronic diastolic (congestive) heart failure; I16.1 Hypertensive emergency; N17.9 Acute kidney failure, unspecified; Z20.822 Contact with and (suspected) exposure to COVID-19; I69.351 Hemiplegia and hemiparesis following cerebral infarction affecting right dominant side; E11.22 Type 2 diabetes mellitus with diabetic chronic kidney disease; F20.9 Schizophrenia, unspecified; G93.89 Other specified disorders of brain; F03.90 Unspecified dementia, unspecified severity, without behavioral disturbance, psychotic disturbance, mood disturbance, and anxiety; F43.20 Adjustment disorder, unspecified; N18.4 Chronic kidney disease, stage 4 (severe); E87.5 Hyperkalemia; E78.5 Hyperlipidemia, unspecified; I35.1 Nonrheumatic aortic (valve) insufficiency; F32.A Depression, unspecified; E03.9 Hypothyroidism, unspecified; G40.909 Epilepsy, unspecified, not intractable, without status epilepticus; I45.2 Bifascicular block; Z78.1 Physical restraint status; Z79.899 Other long term (current) drug therapy; Z87.891 Personal history of nicotine dependence
CPT/HCPCS: 80048; 80053; 80307; 81001; 81002; 82962; 83036; 83735; 84100; 84484; 85025; 87081; 93005; 93306; 96360; 97110; 97112; 97163; 97530; 99285; G0378; G0480; J1630; J1644; J2060; J3480; J3490; J7050; J7060; Q9967; 36415-L1; 36415-TC